=== PATIENT | male | born 1985 | race Two or more races ===

== ENCOUNTER → 2016-09-24 | Outpatient (CLI) | payer OTHER ==
--- NOTE | 2016-09-24 12:24 | KCIC ---
PROCEDURE Two-view chest HISTORY Persistent cough and fever. COMPARISON Single-view chest December 03, 2015. FINDINGS Cardiac silhouette is stable and not enlarged. No evidence of pneumothorax. No focal airspace consolidation. No evidence of pleural effusion. IMPRESSION No evidence of active disease in the chest. Electronically signed by: Juan Ortega MD (Sep 24, 2016 12:23:14)
== END | disposition home or self-care (01) ==
LOC: KCIC 11:34
PROVIDERS: ATTEND Family Medicine
DX: R05 Cough (principal); R53.83 Other fatigue; R50.9 Fever, unspecified
CPT/HCPCS: 71020

== ENCOUNTER 2018-05-02 09:52 | Emergency (ER) | payer OTHER ==
[~2018-05-02] VITALS: Ht 160 cm; Wt 68.0 kg
[2018-05-02 10:09] VITALS: BP 125/63
--- NOTE | 2018-05-02 10:24 | PHYS DOC ---
Past Medical History Past Medical History: TB Past Surgical History: No Surgical History Alcohol Use: None Drug Use: None Adult General Chief Complaint Chief Complaint: LOWER BACK PAIN OR INJURY HPI HPI Patient is a 32-year-old who presents to the emergency department for evaluation of lower back pain. He states on Wednesday he lifted up a box and began having some sharp pain in his right lower back radiating down his right leg, which gradually has worsened over the past 3 days. He denies any urinary or fecal incontinence, or saddle anesthesia, numbness, weakness. Movement and position changes seem to worsen his pain. There are no alleviating factors to his symptoms. He has not had any abdominal pain or flank pain, dysuria or hematuria. He has not had any fevers or chills. Review of Systems Review of Systems Constitutional: Denies fever or chills [] Eyes: Denies change in visual acuity, redness, or eye pain [] HENT: Denies nasal congestion or sore throat [] Respiratory: Denies cough or shortness of breath [] Cardiovascular: The patient denies any shortness of breath, chest pain, palpitations, or orthopnea [] GI: Denies abdominal pain, nausea, vomiting, bloody stools or diarrhea [] : Denies dysuria or hematuria [] Musculoskeletal: Denies muscle or joint pain [] Integument: Denies rash or skin lesions [] Neurologic: Denies headache, focal weakness or sensory changes [] Endocrine: Denies polyuria or polydipsia [] All other systems were reviewed and found to be within normal limits, except as documented in this note. Current Medications Current Medications Current Medications Medications (Trade) Dose Ordered Sig/Khushbu Start Time Stop Time Status Last Admin Dose Admin Diazepam (Valium) 5 mg 1X ONCE 05/02/18 10:30 05/02/18 10:31 DC 05/02/18 10:40 5 MG Ibuprofen (Motrin) 600 mg 1X ONCE 05/02/18 10:30 05/02/18 10:31 DC 05/02/18 10:41 600 MG Oxycodone/ Acetaminophen (Percocet 5/325) 1 tab 1X ONCE 05/02/18 10:30 05/02/18 10:31 DC 05/02/18 10:40 1 TAB Allergies Allergies Allergies Coded Allergies Type Severity Reaction Last Updated Verified No Known Drug Allergies 05/02/18 No Physical Exam Physical Exam PHYSICAL EXAM: CONSTITUTIONAL: Well developed, well nourished HEAD: normocephalic, atraumatic EENT: PERRL, EOMI. Conjunctivae normal color, sclerae non-icteric; moist mucous membranes. NECK: Supple, non-tender; no meningismus. LUNGS: Lungs CTA, breathing even and unlabored. Normal air movement. HEART: Regular rate and rhythm, no murmur CHEST: No deformity; non-tender ABDOMEN: The abdomen is soft, and non-tender, no masses or bruits. EXTREM: Normal ROM; no deformity, no calf tenderness. Normal pulses palpable in all extremities. There is no pedal edema. SKIN: No rash; no diaphoresis NEURO: Alert; normal speech and cognition; CN's grossly intact; strength grossly intact without focal deficit. Patellar reflexes are 2+ bilaterally. There is no perineal anesthesia. There is no foot drop. BACK: No CVA TTP. There is tenderness to palpation in the lower lumbar spine, both midline and right paraspinal, which reproduces the patient's pain. There are no lesions on the skin noted. Straight leg raise is positive bilaterally, right greater than left, approximately 20-30 of elevation. Current Patient Data Vital Signs Vital Signs Date Time Temp Pulse Resp B/P (MAP) Pulse Ox O2 Delivery O2 Flow Rate FiO2 05/02/18 10:40 16 99 Room Air 05/02/18 10:09 98.0 82 125/63 (83) 98.0 Lab Values Laboratory Tests Test 05/02/18 10:26 White Blood Count 6.3 x10^3/uL (4.0-11.0) Red Blood Count 5.30 x10^6/uL (4.30-5.70) Hemoglobin 14.9 g/dL (13.0-17.5) Hematocrit 43.5 % (39.0-53.0) Mean Corpuscular Volume 82 fL (79-100) Mean Corpuscular Hemoglobin 28 pg (25-35) Mean Corpuscular Hemoglobin Concent 34 g/dL (31-37) Red Cell Distribution Width 13.4 % (11.5-14.5) Platelet Count 195 x10^3/uL (140-400) Neutrophils (%) (Auto) 59 % (31-73) Lymphocytes (%) (Auto) 35 % (24-48) Monocytes (%) (Auto) 4 % (0-9) Eosinophils (%) (Auto) 2 % (0-3) Basophils (%) (Auto) 0 % (0-3) Neutrophils # (Auto) 3.7 x10^3uL (1.8-7.7) Lymphocytes # (Auto) 2.2 x10^3/uL (1.0-4.8) Monocytes # (Auto) 0.3 x10^3/uL (0.0-1.1) Eosinophils # (Auto) 0.1 x10^3/uL (0.0-0.7) Basophils # (Auto) 0.0 x10^3/uL (0.0-0.2) Sodium Level 139 mmol/L (136-145) Potassium Level 3.6 mmol/L (3.5-5.1) Chloride Level 105 mmol/L (98-107) Carbon Dioxide Level 24 mmol/L (21-32) Anion Gap 10 (6-14) Blood Urea Nitrogen 9 mg/dL (8-26) Creatinine 0.9 mg/dL (0.7-1.3) Estimated GFR (Cockcroft-Gault) 97.8 Glucose Level 152 mg/dL (70-99) H Calcium Level 9.0 mg/dL (8.5-10.1) C-Reactive Protein, Quantitative 1.2 mg/L (0-3.3) Laboratory Tests 05/02/18 10:26 Laboratory Tests 05/02/18 10:26 EKG EKG [] Radiology/Procedures Radiology/Procedures [PROCEDURE: LUMBAR SPINE 2-3V History: Low back pain for 3 days after reaching above head with box. Comparison: None. Findings: AP and lateral views lumbar spine, 3 images. 5 lumbar type vertebral bodies are present. Mild levoconvex curvature of the lumbar spine is present. No acute fracture or acute malalignment is identified. No spondylolysis or spondylolisthesis is appreciated. No significant degeneration is seen. Impression: 1. No acute osseous abnormality identified. 2. Mild levoconvex curvature of the lumbar spine.] Course & Med Decision Making Course & Med Decision Making Pertinent Labs and Imaging studies reviewed. (See chart for details) [11:20 AM: The patient's condition remained stable. He is ambulatory, although does have somewhat of an antalgic gait. I discussed test results with the patient, the need for close follow-up with back specialist for likely MRI if pain persists, we discussed return precautions as well as medication precautions for] Niyah Disclaimer Niyah Disclaimer This electronic medical record was generated, in whole or in part, using a voice recognition dictation system. Departure Departure Impression: Primary Impression: Acute low back pain Additional Impression: Lumbar radiculopathy Disposition: HOME, SELF-CARE Condition: STABLE Referrals: JENSIE MARQUEZ MD Patient Instructions: Back Pain, Adult, Lumbosacral Radiculopathy, Sciatica Additional Instructions: Ibuprofen 400-600 mg every 6 hours may help improve your symptoms. Applying a heating pad to the affected area may help improve your symptoms. The prescribed medications may cause drowsiness-use caution while taking. Scripts Oxycodone/Apap 5-325 (PERCOCET 5-325 MG TABLET) 1 Each Tablet 1 TAB PO QID PRN for PAIN, #20 TAB Prov: RUBIN BILLS MD 05/02/18 Cyclobenzaprine Hcl (CYCLOBENZAPRINE HCL) 10 Mg Tablet 1 TAB PO TID PRN for PAIN, #30 TAB Prov: RUBIN BILLS MD 05/02/18 Problem Qualifiers RUBIN BILLS MD May 02, 2018 10:24
[2018-05-02] MEDS ORDERED: oxyCODONE/APAP 5/325 1 TAB TABLET PO ONE (10:30)
[2018-05-02] MEDS ORDERED: diazePAM 5 MG TABLET PO ONE (10:30)
[2018-05-02] MEDS ORDERED: IBUPROFEN 600 MG TABLET. PO ONE (10:30)
[2018-05-02 10:39] LABS: BASO % 0 % (0-3); EOS # 0.1 x10^3/uL (0.0-0.7); EOS % 2 % (0-3); HEMATOCRIT 43.5 % (39.0-53.0); HEMOGLOBIN 14.9 g/dL (13.0-17.5); LYMPH # 2.2 x10^3/uL (1.0-4.8); LYMPH % 35 % (24-48); MEAN CORPUSCULAR HEMOGLOBIN 28 pg (25-35); MEAN CORPUSCULAR HGB CONC 34 g/dL (31-37); MEAN CORPUSCULAR VOLUME 82 fL (79-100); MONO # 0.3 x10^3/uL (0.0-1.1); MONO % 4 % (0-9); NEUT # 3.7 x10^3uL (1.8-7.7); NEUT % 59 % (31-73); PLATELET COUNT 195 x10^3/uL (140-400); RED CELL DISTRIBUTION WIDTH 13.4 % (11.5-14.5); WHITE BLOOD COUNT 6.3 x10^3/uL (4.0-11.0)
--- NOTE | 2018-05-02 10:47 | RAD ---
History: Low back pain for 3 days after reaching above head with box. Comparison: None. Findings: AP and lateral views lumbar spine, 3 images. 5 lumbar type vertebral bodies are present. Mild levoconvex curvature of the lumbar spine is present. No acute fracture or acute malalignment is identified. No spondylolysis or spondylolisthesis is appreciated. No significant degeneration is seen. Impression: 1. No acute osseous abnormality identified. 2. Mild levoconvex curvature of the lumbar spine. Electronically signed by: Juan Patel MD (05/02/2018 10:43 AM) [place] [id number]
[2018-05-02 11:04] LABS: CREATININE 0.9 mg/dL (0.7-1.3); GFR 97.8; POTASSIUM 3.6 mmol/L (3.5-5.1)
[2018-05-02 11:07] LABS: C-REACTIVE PROTEIN 1.2 mg/L (0-3.3)
[2018-05-02] MEDS ORDERED: CYCL10TA2 PO (11:23)
[2018-05-02] MEDS ORDERED: OXYC1TAB15 PO (11:23)
== END 2018-05-02 11:37 | disposition home or self-care (01) ==
LOC: ER 09:52
DX: M54.16 Radiculopathy, lumbar region (principal)
CPT/HCPCS: 36415; 72100; 80048; 85025; 86140; 99284-25